=== PATIENT | male | born 1960 | race Hispanic/Latino ===

== ENCOUNTER → 2024-01-11 | Outpatient (CLI) | payer MEDICARE ==
[~2024-01-11] MED LIST: IOHEXOL 350 MG/ML 100ML INFUS..BTL IV ONE; metoPROLOL tartRATE 1 MG/ML 5ML VIAL IV ONE
--- NOTE | 2024-01-11 13:43 | HMCIMG ---
CT CARDIAC ANGIO W/CONT. CCTA REASON: Atherosclerotic heart disease of [place] coronary artery without angina pect COMPARISON: None TECHNIQUE: Images are obtained through the heart in the axial plane before and during bolus IV contrast infusion, 100 cc Omnipaque 350. 2-D and 3-D multiplanar reconstruction images were then performed. The injection had to be repeated once due to motion artifact on the first sequence, total contrast volume was 200 cc. FINDINGS: This dictation is for the noncardiac findings only. Cardiac and coronary artery findings are reported separately. Visualized portions of the lungs are clear. There is normal-appearing pulmonary interstitium. There is no hilar or mediastinal lymphadenopathy. Chest wall structures appear unremarkable. IMPRESSION: 1. Unremarkable noncardiac portions of CT cardiac angiography.
== END | disposition home or self-care (01) ==
LOC: RAH 09:27
PROVIDERS: ATTEND Student in an Organized Health Care Education/Training Program
DX: I25.10 Atherosclerotic heart disease of native coronary artery without angina pectoris (principal); I70.91 Generalized atherosclerosis
CPT/HCPCS: 75574; J3490; Q9967

== ENCOUNTER 2025-01-27 06:11 | Day surgery (SDC) | payer OTHER ==
[2025-01-22 11:42] VITALS: BP 122/73; PULSE 86; RESP 16
[2025-01-22 11:44] LABS: IMMATURE GRANULOCYTE ABSOLUTE 0.05 K/uL (0-1); NUCLEATED RED BLOOD CELLS 0.0 % (0.0-0.19); PLATELET COUNT (AUTO) 242 K/uL (130-400); RED BLOOD CELL COUNT(AUTO) 4.36 MIL/uL (4.50-6.20); RED CELL DISTRIBUTION WIDTH 15.7 % (11.0-15.5); WHITE BLOOD COUNT (AUTO) 8.6 K/uL (4.8-10.8)
[2025-01-22 11:54] LABS: INR 1.05 (0.85-1.15)
[2025-01-22 11:55] LABS: ADD UA MICROSCOPIC NO; APPEARANCE,URINE CLEAR (CLEAR); GLUCOSE, URINE (UA) NEGATIVE (NEGATIVE); LEUKOCYTE ESTERASE ,URINE NEGATIVE Leu/uL (NEGATIVE); NITRATE,URINE NEGATIVE (NEGATIVE); OCCULT BLOOD,URINE NEGATIVE (NEGATIVE)
--- NOTE | 2025-01-22 12:03 | EKG ---
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
[2025-01-22 12:14] LABS: CREATININE 0.7 mg/dL (0.5-1.3); GLOMERULAR FILTR. RATE CALC 102.0 mL/min (>90); GLUCOSE,RANDOM 89.0 mg/dL (70-105); SODIUM SERUM 133.0 mmol/L (136-145); UREA NITROGEN, BLOOD 13.0 mg/dL (7-18)
--- NOTE | 2025-01-22 12:23 | HMCIMG ---
CHEST 1VW REASON: PREOP COMPARISON: None. FINDINGS: Single view of the chest was obtained. Lungs are clear. Heart size is normal. There is no pulmonary vascular congestion. Mediastinum and bony thorax appear unremarkable. IMPRESSION: 1. Normal single view chest x-ray.
[~2025-01-27] VITALS: Ht 170.2 cm; Wt 152.5 kg
[2025-01-27] VITALS (10 sets, daily range): BP systolic 114–162; BP diastolic 81–135; PULSE 70–97; RESP 10–21; TEMP 97.8–99.3
[~2025-01-27 06:11] MED LIST changes: +AMLO-258 PO; +ASPI-1443 PO; +ATOR10 PO; +ESOM20CA60 PO; +ICOS1CAP2 PO; -IOHEXOL 350 MG/ML 100ML INFUS..BTL IV ONE; +MULT-1337 PO; +RAMI10CA76 PO; +TAMSULOSIN PO; +TRAM100C2 PO; +VARE1TAB28 PO; +VITAMIN B12 PO; -metoPROLOL tartRATE 1 MG/ML 5ML VIAL IV ONE
[2025-01-27] MEDS: 0.9%NACL 1000ML 1,000 ML IV SCH (06:53)
[2025-01-27] MEDS ORDERED: LIDOCAINE HCL 400MG/20ML VIAL ONE (08:05)
[2025-01-27] MEDS ORDERED: HEParin-NS 1,000 UNIT/500 ML 1,000 ML IV ONE (08:06)
[2025-01-27] MEDS ORDERED: NITROGLYCERIN 50MG VIAL ONE (08:06)
[2025-01-27] MEDS ORDERED: VERAPAMIL HCL 2.5 MG/ML VIAL ONE (08:06)
[2025-01-27] MEDS ORDERED: IOHEXOL 350 MG/ML 100ML INFUS..BTL IV ONE (08:14)
[2025-01-27] MEDS ORDERED: MIDAZOLAM HCL 1 MG/ML 2ML VIAL ONE ×2 (08:30→08:54)
[2025-01-27] MEDS ORDERED: DEXTROSE 50%-WATER 50 ML DISP.SYRIN IV PRN ×2 (09:30→11:00)
[2025-01-27] MEDS ORDERED: GLUCAGON 1MG KIT 1 MG ML IM PRN ×2 (09:30→11:00)
[2025-01-27] MEDS ORDERED: 0.9%NACL 1000ML 1,000 ML IV SCH ×2 (09:30→11:00)
--- NOTE | 2025-01-27 09:35 | PRN ---
PROCEDURE REPORT DATE OF PROCEDURE: Jan 27, 2025 MANAGER SPORTS: [Bob Jiménez MD ] PROCEDURE PERFORMED: Conscious sedation Ultrasound guided right radial artery access Selective left coronary artery angiogram Selective right coronary artery angiogram Left heart catheterization TR band 13 amira over right radial artery INDICATION: Abnormal CCTA DESCRIPTION OF PROCEDURE: After informed consent was obtained, the patient was prepped and draped in the usual sterile fashion. A 6 Serbian arterial sheath was inserted in the right radial artery using ultrasound guidance with first pass wall puncture. The arterial sheath was aspirated and flushed. A 6 Serbian JL 3.5 was then advanced to the ascending aorta over an exchange length J-tip guidewire, was aspirated and flushed, and was used for selective coronary angiograms in multiple obliquities. A JR-4 was advanced in a similar fashion to the ascending aorta over the J-tipped guidewire and was used for selective right coronary angiograms in multiple oblique views with findings as outlined below. The JR-4 catheter advanced into the LV and pressures were obtained with a pull-back across the aortic valve. A TR band was placed over right radial artery. FLUOROSCOPY TIME: 3.2 min LEFT HEART HEMODYNAMICS: LVEDP 20 mm Hg and no gradient Ao CORONARY ANGIOGRAM: LEFT MAIN: Patent and 0% stenosis. Gives rise to LCx and LAD. LEFT ANTERIOR DESCENDING: Large vessel giving rise to two Diagonal branches. Luminal irregularities with ABA 3 flow. Diags are patent LEFT CIRCUMFLEX: Large and gives rise to two OM branches. 0% stenosis. RIGHT CORONARY ARTERY: Large, dominant vessel giving rise to PDA and PL branches. 0% stenosis. HEMOSTASIS: TR band 12 amira over right radial artery INTERVENTIONS: None. COMPLICATIONS: None FINDINGS: Normal coronary anatomy with no evidence of obstructive CAD. ESTIMATED BLOOD LOSS: 5 cc RECOMMENDATIONS/INSTRUCTIONS: Aggressive risk factor modification. Optimize GDT, Diet/exercise, weight loss Consider BO eval given elevated LVEDP 20mmHg CONTRAST DELIVERED TO PATIENT (mL): 70cc MD SIL Rawls JAMES R MD Jan 27, 2025 09:35
--- NOTE | 2025-01-27 10:00 | NUR ---
URINARY: VOIDED 300 CC CLEAR YELLOW COLOR URINE PER URINAL WITHOUT DIFFICULTY.
--- NOTE | 2025-01-27 10:30 | NUR ---
URINARY: VOIDED 200CC CLEAR YELLOW COLOR URINE PER URINAL WITHOUT DIFFICULTY.
--- NOTE | 2025-01-27 11:45 | NUR ---
URINARY: VOIDED 200 C CLEAR YELLOW COLR URINE VIA URINAL WITHOUT DIFFICULTY
--- NOTE | 2025-01-27 11:50 | NUR ---
VASC BAND: VASC BAND REMOVED AND CLEANSED AREA WITH CHLORAPREP, APPLIED 2X2 STERILE GAUZE FOLLOWED BY 2X2 TEGADERM.
--- NOTE | 2025-01-27 12:25 | NUR ---
URINARY: VOIDED 300 CC CLEAR YELLOW COLOR URINE PER URINAL WITHOUT DIFFICULTY.
== END 2025-01-27 13:30 | disposition home or self-care (01) ==
LOC: DAH 06:11
PROVIDERS: ATTEND Student in an Organized Health Care Education/Training Program
DX: R94.39 Abnormal result of other cardiovascular function study (principal); I10 Essential (primary) hypertension; E78.2 Mixed hyperlipidemia; F17.210 Nicotine dependence, cigarettes, uncomplicated; E66.01 Morbid (severe) obesity due to excess calories; Z68.43 Body mass index [BMI] 50.0-59.9, adult; Z82.49 Family history of ischemic heart disease and other diseases of the circulatory system; Z79.899 Other long term (current) drug therapy
CPT/HCPCS: 80048; 83880; 85025; 85610; 85730; 81003; 36415; 71045; 93005; 99156; 99157 ×3; 93458; Q9965; A4223 ×3; C1887; C1769 ×4; C1894; A4649; J3010; J3490 ×3; J7030; J1644 ×2; J2250 ×2; Q9967; A4215; A4222; A6260; A4221; A4663; A4216; A6206; A4606; 96360; 96361